=== PATIENT | female | born 1965 | race Caucasian/White ===

== ENCOUNTER 2020-11-28 10:43 | Emergency (ER) | payer OTHER ==
[~2020-11-28] VITALS: Ht 170.2 cm; Wt 54.5 kg
[2020-11-28 10:45] VITALS: BP 142/82
--- NOTE | 2020-11-28 11:07 | PHYS DOC ---
General Adult EDM: Chief Complaint: ANKLE PROBLEM HPI: HPI: 55-year-old female presents with a left lateral ankle pain. The patient was walking down the street last night and she stepped off of the edge of the road and into the ditch. She rolled her foot inward and her weight landed on the lateral side of her ankle. She is able to put most of her weight on it but it is very painful to walk. It is swollen and tender to palpation on the lateral aspect. She denies any other injuries or complaints at this time. Review of Systems: Review of Systems: Constitutional: Denies fever or chills Eyes: Denies change in visual acuity HENT: Denies nasal congestion or sore throat Respiratory: Denies cough or shortness of breath Cardiovascular: Denies chest pain or edema GI: Denies abdominal pain, nausea, vomiting, bloody stools or diarrhea : Denies dysuria Musculoskeletal: Left lateral ankle pain Integument: Denies rash Neurologic: Denies headache, focal weakness or sensory changes Endocrine: Denies polyuria or polydipsia Lymphatic: Denies swollen glands Psychiatric: Denies depression or anxiety Physical Exam: PE: Constitutional: Well developed, well nourished, no acute distress, non-toxic appearance. [] HENT: Normocephalic, atraumatic, bilateral external ears normal, oropharynx mois t, no oral exudates, nose normal. [] Eyes: PERRLA, EOMI, conjunctiva normal, no discharge. [] Neck: Normal range of motion, no tenderness, supple, no stridor. [] Cardiovascular: Heart rate regular rhythm, no murmur [] Lungs & Thorax: Bilateral breath sounds clear to auscultation [] Abdomen: Bowel sounds normal, soft, no tenderness, no masses, no pulsatile masses. [] Skin: Warm, dry, no erythema, no rash. [] Back: No tenderness, no CVA tenderness. [] Extremities: Swelling of the left lateral ankle, tenderness, some ecchymosis. [] Neurologic: Alert and oriented X 3, normal motor function, normal sensory function, no focal deficits noted. [] Psychologic: Affect normal, judgement normal, mood normal. [] EKG: EKG: [] Radiology/Procedures: Radiology/Procedures: [] Impressions: EXAMINATION: Left ankle radiograph. VIEWS: 3 COMPARISON: None INDICATION:55 years, Female, fall, lateral swelling. FINDINGS: Acute minimally displaced oblique lateral malleolar fracture with extension to the articular surface. No dislocation or subluxation. Ankle mortise and talar dome are intact. Mild soft tissue swelling about the lateral malleolus. Small ankle joint effusion. IMPRESSION: Acute minimally displaced lateral malleolar fracture. Electronically signed by: Laurie Baron MD (11/28/2020 11:36 AM) [facility] DICTATED AND SIGNED BY: LAURIE BARON MD DATE: 11/28/20 113 CC: TWIN METCALF DO; PCP,NO ~MTH0 0 Heart Score: C/O Chest Pain: N/A Risk Factors: Risk Factors: DM, Current or recent (<one month) smoker, HTN, HLP, family history of CAD, obesity. Risk Scores: Score 0 - 3: 2.5% MACE over next 6 weeks - Discharge Home Score 4 - 6: 20.3% MACE over next 6 weeks - Admit for Clinical Observation Score 7 - 10: 72.7% MACE over next 6 weeks - Early Invasive Strategies Course & Med Decision Making: Course & Med Decision Making Pertinent Labs and Imaging studies reviewed. (See chart for details) The patient has a distal fibular fracture. She already has a cam boot that she had at home from an injury to her . I have advised that she can continue to use this and follow-up with orthopedics. She is stable for discharge at this time. [] Vanesa Disclaimer: Vanesa Disclaimer: This electronic medical record was generated, in whole or in part, using a voice recognition dictation system. Departure Departure: Impression: Primary Impression: Closed left fibular fracture Qualified Codes: S82.832A - Other fracture of upper and lower end of left fibula, initial encounter for closed fracture Disposition: 01 HOME / SELF CARE / HOMELESS Condition: STABLE Referrals: PCP,NORIS (PCP) Patient Instructions: Fibular Fracture, Ankle, Adult, Treated with or without Immobilization Additional Instructions: You can follow-up with the [facility] orthopedic group for your fracture. To make an appointment call [phone]. TWIN METCALF DO Nov 28, 2020 11:07
--- NOTE | 2020-11-28 11:38 | RAD ---
EXAMINATION: Left ankle radiograph. VIEWS: 3 COMPARISON: None INDICATION:55 years, Female, fall, lateral swelling. FINDINGS: Acute minimally displaced oblique lateral malleolar fracture with extension to the articular surface. No dislocation or subluxation. Ankle mortise and talar dome are intact. Mild soft tissue swelling ab out the lateral malleolus. Small ankle joint effusion. IMPRESSION: Acute minimally displaced lateral malleolar fracture. Electronically signed by: Martin Baron MD (11/28/2020 11:36 AM) [facility]
== END 2020-11-28 11:36 | disposition home or self-care (01) ==
LOC: ER 10:43
DX: S82.832A Other fracture of upper and lower end of left fibula, initial encounter for closed fracture (principal); X50.9XXA Other and unspecified overexertion or strenuous movements or postures, initial encounter; Y93.89 Activity, other specified; Y92.89 Other specified places as the place of occurrence of the external cause; Y99.8 Other external cause status
CPT/HCPCS: 73610; 99283

== ENCOUNTER 2020-12-05 14:08 | Emergency (ER) | payer OTHER ==
[~2020-12-05] VITALS: Ht 170.2 cm; Wt 54.5 kg
--- NOTE | 2020-12-05 14:42 | PHYS DOC ---
Past History Past Surgical History: Other Additional Past Surgical Histo: bilat foot sx Alcohol Use: Occasionally General Adult EDM: Chief Complaint: LOWER EXTREMITY SWELLING HPI: HPI: 55-year-old female presents with left lower leg swelling. The patient fractured her ankle recently and went to her first follow-up appointment with orthopedics today. He did not like the way her left lower leg wound so he ordered an ultrasound. They reportedly found a DVT so they advised the patient to check in the emergency room. Patient denies shortness of breath, chest pain, diaphoresis. She has never had a DVT or pulmonary embolus. No known bleeding or clotting disorders. She has no other complaints this time. Review of Systems: Review of Systems: Constitutional: Denies fever or chills Eyes: Denies change in visual acuity HENT: Denies nasal congestion or sore throat Respiratory: Denies cough or shortness of breath Cardiovascular: Denies chest pain or edema GI: Denies abdominal pain, nausea, vomiting, bloody stools or diarrhea : Denies dysuria Musculoskeletal: left lower leg swelling Integument: Denies rash Neurologic: Denies headache, focal weakness or sensory changes Endocrine: Denies polyuria or polydipsia Lymphatic: Denies swollen glands Psychiatric: Denies depression or anxiety Allergies: Allergies: Allergies Coded Allergies Type Severity Reaction Last Updated Verified No Known Drug Allergies 12/05/20 No Physical Exam: PE: Constitutional: Well developed, well nourished, no acute distress, non-toxic appearance. [] HENT: Normocephalic, atraumatic, bilateral external ears normal, oropharynx moist, no oral exudates, nose normal. [] Eyes: PERRLA, EOMI, conjunctiva normal, no discharge. [] Neck: Normal range of motion, no tenderness, supple, no stridor. [] Cardiovascular:Heart rate regular rhythm, no murmur [] Lungs & Thorax: Bilateral breath sounds clear to auscultation [] Abdomen: Bowel sounds normal, soft, no tenderness, no masses, no pulsatile masses. [] Skin: Warm, dry, no erythema, no rash. [] Back: No tenderness, no CVA tenderness. [] Extremities: Left lower leg around the ankle in a dressing, calf area greater diameter than right, ecchymosis. [] Neurologic: Alert and oriented X 3, normal motor function, normal sensory function, no focal deficits noted. [] Psychologic: Affect normal, judgement normal, mood normal. [] Current Patient Data: Vital Signs: Vital Signs Date Time Temp Pulse Resp B/P (MAP) Pulse Ox O2 Delivery O2 Flow Rate FiO2 12/05/20 14:14 98.9 16 137/83 (101) Room Air EKG: EKG: [] Radiology/Procedures: Radiology/Procedures: [] Impressions: EXAM: Left lower extremity venous Doppler sonogram. HISTORY: Pain and swelling. Ankle fracture. TECHNIQUE: Cagle scale and color Doppler sonographic evaluation of the left lower extremity veins with spectral waveform analysis was performed. FINDINGS: There is occlusive venous thrombosis involving the distal left peroneal veins. There is also occlusive venous thrombosis involving the gastrocnemius vein to the proximal medial calf. There is normal color flow, normal compressibility and there are normal spectral waveforms in the remainder of the lower extremity veins. There is a prominent left inguinal lymph node which is likely physiologic or reactive. This maintains a benign fatty hilum. IMPRESSION: Distal left peroneal occlusive deep venous thrombosis and gastrocnemius venous thrombosis within the proximal medial calf. Findings were communicated to the referring physician office by the manager consumer at the time of the exam. Electronically signed by: Cherie Mcgill MD (12/05/2020 1:54 PM) [id number] DICTATED AND SIGNED BY: CHERIE MCGILL MD DATE: 12/05/20 1352 CC: PCP,NORIS; DENIS SPAULDING DPM ~MTH0 0 Heart Score: C/O Chest Pain: N/A Risk Factors: Risk Factors: DM, Current or recent (<one month) smoker, HTN, HLP, family history of CAD, obesity. Risk Scores: Score 0 - 3: 2.5% MACE over next 6 weeks - Discharge Home Score 4 - 6: 20.3% MACE over next 6 weeks - Admit for Clinical Observation Score 7 - 10: 72.7% MACE over next 6 weeks - Early Invasive Strategies Course & Med Decision Making: Course & Med Decision Making Pertinent Labs and Imaging studies reviewed. (See chart for details) The patient's labs are unremarkable. I reviewed her ultrasound she does have a DVT. I will start her on Eliquis. We will give the first dose in the ED. I have stressed that she must establish with a primary care physician this week. Patient states verbal understanding. She is stable for discharge at this time. [] Vanesa Disclaimer: Dragtony Disclaimer: This electronic medical record was generated, in whole or in part, using a voice recognition dictation system. Departure Departure: Impression: Primary Impression: DVT (deep venous thrombosis) Qualified Codes: I82.452 - Acute embolism and thrombosis of left peroneal vein Disposition: HOME / SELF CARE / HOMELESS Condition: STABLE Referrals: PCP,NO (PCP) Patient Instructions: Deep Vein Thrombosis Scripts Apixaban (ELIQUIS) 5 Mg Tablet 5 MG PO BID for DVT, #60 TAB 2 tablets BID for 7 days, then 1 tablet BID Prov: TWIN METCALF DO 12/05/20 TWIN METCALF DO Dec 05, 2020 14:42
[2020-12-05 15:18] LABS: BASO # 0.1 x10^3/uL (0.0-0.2); BASO % 1 % (0-3); EOS # 0.1 x10^3/uL (0.0-0.7); EOS % 2 % (0-3); HEMATOCRIT 37.9 % (36.0-47.0); HEMOGLOBIN 12.7 g/dL (12.0-15.5); LYMPH # 1.5 x10^3/uL (1.0-4.8); LYMPH % 24 % (24-48); MEAN CORPUSCULAR HEMOGLOBIN 35 pg (25-35); MEAN CORPUSCULAR HGB CONC 34 g/dL (31-37); MEAN CORPUSCULAR VOLUME 104 fL (79-100); MONO # 0.5 x10^3/uL (0.0-1.1); MONO % 9 % (0-9); NEUT % 65 % (31-73); PLATELET COUNT 349 x10^3/uL (140-400); RED BLOOD COUNT 3.66 x10^6/uL (3.50-5.40); RED CELL DISTRIBUTION WIDTH 12.9 % (11.5-14.5); WHITE BLOOD COUNT 6.2 x10^3/uL (4.0-11.0)
[2020-12-05 15:34] LABS: CALCIUM 8.9 mg/dL (8.5-10.1); CREATININE 0.5 mg/dL (0.6-1.0); GFR 129.1; POTASSIUM 3.7 mmol/L (3.5-5.1)
[2020-12-05 15:39] LABS: ALBUMIN 3.3 g/dL (3.4-5.0); ALBUMIN/GLOBULIN RATIO 0.8 (1.0-1.7); TOTAL BILIRUBIN 0.4 mg/dL (0.2-1.0); TOTAL PROTEIN 7.2 g/dL (6.4-8.2)
[2020-12-05] MEDS ORDERED: APIXABAN 5 MG TABLET. PO STA (15:49)
[2020-12-05] MEDS ORDERED: APIX5TAB3 PO (15:55)
[2020-12-05 16:09] VITALS: BP 148/78
== END 2020-12-05 16:12 | disposition home or self-care (01) ==
LOC: ER 14:08
DX: I82.452 Acute embolism and thrombosis of left peroneal vein (principal)
CPT/HCPCS: 36415; 80053; 85025; 85610; 85730; 99283

== ENCOUNTER → 2020-12-05 | Outpatient (CLI) | payer OTHER ==
[2020-11-28 10:45] VITALS: BP 142/82
[~2020-12-05] MED LIST: APIX5TAB3 PO
--- NOTE | 2020-12-05 11:32 | RAD ---
EXAM: Left ankle, 3 views. HISTORY: Pain. COMPARISON: 11/28/2020 FINDINGS: 3 views of the left ankle are obtained. There is a mildly comminuted and displaced fracture of the distal fibular metaphysis. The ankle mortise is intact. There is no osteochondral lesion. The re is a suspected small bone island within the talus. IMPRESSION: No significant interval healing of a mildly displaced distal fibular metaphyseal fracture . Electronically signed by: Cherie Quinn MD (12/05/2020 11:30 AM) [id number]
--- NOTE | 2020-12-05 13:57 | RAD ---
EXAM: Left lower extremity venous Doppler sonogram. HISTORY: Pain and swelling. Ankle fracture. TECHNIQUE: Cagle scale and color Doppler sonographic evaluation of the left lower extremity veins with spectral waveform analysis was performed. FINDINGS: There is occlusive venous thrombosis involving the distal left peroneal veins. There is als o occlusive venous thrombosis involving the gastrocnemius vein to the proximal medial calf. There is normal color flow, normal compressibility and there are normal spectral waveforms in the remainder of the lower extremity veins. There is a prominent left inguinal lymph node which is likely physiologic or reactive. This maintains a benign fatty hilum. IMPRESSION: Distal left peroneal occlusive deep venous thrombosis and gastrocnemius venous thrombosis within the proximal medial calf. Findings were communicated to the referring physician office by the assistant general manager at the time of the ex am. Electronically signed by: Cherie Quinn MD (12/05/2020 1:54 PM) [id number]
== END ==
LOC: RAD 11:10
PROVIDERS: ATTEND Podiatrist
DX: I82.452 Acute embolism and thrombosis of left peroneal vein (principal); I82.462 Acute embolism and thrombosis of left calf muscular vein
CPT/HCPCS: 73610; 93971

== ENCOUNTER 2020-12-18 10:01 | Emergency (ER) | payer OTHER ==
[~2020-12-18] VITALS: Ht 170.2 cm; Wt 54.5 kg
[2020-12-18 10:01] VITALS: BP 150/76
--- NOTE | 2020-12-18 10:07 | PHYS DOC ---
Past History Past Surgical History: Other Additional Past Surgical Histo: bilat foot sx Alcohol Use: Occasionally Adult General HPI HPI Patient is a 55-year-old female presenting for right hand laceration. Reports she was putting her hand in a jar cleaning it when it broke suffering x2 cuts to her hand. She immediately placed pressure on both areas and presented to our ER for evaluation and fear that she might need suture repair. 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 No changes in motor or sensory or neuro function Review of Systems Review of Systems Fourteen body systems of review of systems have been reviewed. See HPI for pertinent positives and negative responses, other juan all other systems are negative, non-pertinent or non-contributory Allergies Allergies Allergies Coded Allergies Type Severity Reaction Last Updated Verified No Known Drug Allergies 12/05/20 No Physical Exam Physical Exam Constitutional: Well developed, well nourished, no acute distress, non-toxic appearance. HENT: Normocephalic, atraumatic, bilateral external ears normal, oropharynx moist, no oral exudates, nose normal. Eyes: PERRLA, EOMI, conjunctiva normal, no discharge. Neck: Normal range of motion, no tenderness, supple, no stridor. Cardiovascular: Heart rate regular per monitor Lungs & Thorax: No respiratory distress or accessory muscle use, bilateral chest rise Abdomen: Abdomen soft, non-tender, bowel sounds present in all quadrants, no guarding or rebound, nonacute abdomen. Skin: Warm, dry, no erythema, no rash. There is laceration present to dorsal portion of right hand inferior to fourth metacarpal, there is also a linear laceration present along dorsal surface of the fifth carpal proximal to PIP Back: No tenderness, no CVA tenderness. Extremities: No tenderness, no cyanosis, no clubbing, ROM intact, no edema. Neurologic: Alert and oriented X 3, medial radial and ulnar nerves of right upper extremity intact normal motor & sensory function, no focal deficits noted. Psychologic: Affect normal, judgement normal, mood normal. Current Patient Data Vital Signs Vital Signs Date Time Temp Pulse Resp B/P (MAP) Pulse Ox O2 Delivery O2 Flow Rate FiO2 12/18/20 10:01 98.2 90 16 150/76 (100) 100 Room Air Vital Signs Date Time Temp Pulse Resp B/P (MAP) Pulse Ox O2 Delivery O2 Flow Rate FiO2 12/18/20 10:01 98.2 90 16 150/76 (100) 100 Room Air EKG EKG [] Radiology/Procedures Radiology/Procedures EXAM: PA, oblique and lateral views of the right hand DATE: 12/18/2020 10:25 AM INDICATION: Reason: right 4th and 5th digit laceration from glass / Spl. Instructions: / History: . COMPARISON: No Prior FINDINGS/ IMPRESSION: Soft tissue swelling overlying the fifth MTP joint. No evidence of acute fracture or dislocation. No definite retained radiopaque foreign body. Electronically signed by: Florencio Garcia MD (12/18/2020 10:39 AM) [facility] Heart Score C/O Chest Pain: No Risk Factors: Risk Factors: DM, Current or recent (<one month) smoker, HTN, HLP, family history of CAD, obesity. Risk Scores: Risk Factors: DM, Current or recent (<one month) smoker, HTN, HLP, family history of CAD, obesity. Course & Med Decision Making Course & Med Decision Making ABCs unremarkable HPI and physical exam obtained. Patient's tetanus out of date, updated today. Radiographs obtained with no bony involvement or retained obvious foreign body Verbal consent obtained to perform suture repair. This was performed and grossly unremarkable for any obvious retained body or significant impairment of patient's motor or sensory or neuro function of left pinky specifically No indication for antibiotics. Appropriate wound care instructions given. St rict return precautions were discussed with good understanding by patient and significant other at bedside. Close PCP follow-up advised with instructions for suture removal in 7 to 10 days Dragon Disclaimer Dragon Disclaimer This electronic medical record was generated, in whole or in part, using a voice recognition dictation system. Laceration Repair Lac Repair Indication: Laceration Procedure: The patient was placed in the appropriate position and anesthesia around the laceration sites were used. A total of 2.5 cc were used around laceration #1 and a total of 1.5 cc was used around laceration #2, 2% lidocaine was administered. The area was then cleansed with wound solution and explored ex tensively with no concerning retained foreign body. Patient did have shiny appearing material sticking out of right lateral pinky consistent with superficial muscle sheath belly but this was not fully lacerated and did not impair the motor function nor sensory or nerve function of fifth digit. The lacerations were closed shut using 5.0 nonabsorbable Prolene. Laceration 1 required a total of 4 simple interrupted sutures while laceration to required a total of 3 simple interrupted sutures. The wound area was then dressed with appropriate covering per protocol. Total repaired wound length: Laceration #1 at base of fourth metacarpal U-shaped in nature and 2.5 cm, laceration to on dorsal surface of right fifth metacarpal 1.5 cm. Other Items: None The patient tolerated the procedure well without any observed nor reported complications. Departure Departure: Impression: Primary Impression: Hand laceration Disposition: HOME / SELF CARE / HOMELESS Condition: STABLE Referrals: PCP,NO (PCP) Patient Instructions: Laceration Care, Adult Additional Instructions: You were seen for a laceration. Keep the area clean and dry. You should return to the ED or your PCP office to get your sutures removed in 7-10 days. Return to the ED immediately if you develop any signs of infection like increased pain, redness, fever, or purulent (pus) drainage. Do not take baths, submerge the wound, or use a hot tub until your stitches are removed and the wound is healed. DALE SALAS DO Dec 18, 2020 10:07
[2020-12-18] MEDS ORDERED: ACETAMINOPHEN 500 MG TABLET PO ONE (10:30)
--- NOTE | 2020-12-18 10:41 | RAD ---
EXAM: PA, oblique and lateral views of the right hand DATE: 12/18/2020 10:25 AM INDICATION: Reason: right 4th and 5th digit laceration from glass / Spl. Instructions: / History: . COMPARISON: No Prior FINDINGS/ IMPRESSION: Soft tissue swelling overlying the fifth MTP joint. No evidence of acute fracture or dislocation. No definite retained radiopaque foreign body. Electronically signed by: Florencio Garcia MD (12/18/2020 10:39 AM) ELIE
[2020-12-18] MEDS ORDERED: DIPH,PERTUSS(ACELL),TET VAC/PF 0.5 ML SYRINGE. VAX IM ONE (11:15)
== END 2020-12-18 11:21 | disposition home or self-care (01) ==
LOC: ER 10:01
DX: S61.411A Laceration without foreign body of right hand, initial encounter (principal); W26.8XXA Contact with other sharp object(s), not elsewhere classified, initial encounter; Y93.89 Activity, other specified; Y92.89 Other specified places as the place of occurrence of the external cause; Y99.8 Other external cause status
CPT/HCPCS: 12002; 73130; 90471; 90715; 99282-25; 99283-25

== ENCOUNTER → 2020-12-26 | Outpatient (CLI) | payer OTHER ==
[2020-12-18 10:01] VITALS: BP 150/76
--- NOTE | 2020-12-26 08:37 | RAD ---
EXAM: Left ankle, 3 views. HISTORY: Fracture follow-up. COMPARISON: 12/05/2020 FINDINGS: 3 views of the left ankle are obtained. There has been no significant interval healing of a mildly displaced distal fibular metaphyseal fracture. The ankle mortise intact. There is no osteocho ndral lesion. IMPRESSION: No significant interval healing of a mildly displaced distal fibular metaphyseal fracture . Electronically signed by: Cherie Quinn MD (12/26/2020 8:35 AM) [id number]
== END ==
LOC: RAD 08:09
PROVIDERS: ATTEND Podiatrist
DX: M25.572 Pain in left ankle and joints of left foot (principal)
CPT/HCPCS: 73610

== ENCOUNTER → 2021-01-20 | Outpatient (CLI) | payer OTHER ==
--- NOTE | 2021-01-20 14:12 | RAD ---
EXAM: Left ankle, 3 views. HISTORY: Fracture. COMPARISON: 12/05/2020 FINDINGS: 3 views of the left ankle are obtained. There has been no significant interval healing of a mildly displaced distal fibular metaphyseal fracture. The degree of displacement is unchanged. Ankle mortise intact. There is no osteochondral lesion. There is suspected disuse osteopenia. IMPRESSION: No significant interval healing of a minimally displaced distal fibular metaphyseal fract ure. Electronically signed by: Cehrie Quinn MD (01/20/2021 2:09 PM) [id number]
== END ==
LOC: RAD 13:34
PROVIDERS: ATTEND Podiatrist
DX: S82.832D Other fracture of upper and lower end of left fibula, subsequent encounter for closed fracture with routine healing (principal); X58.XXXD Exposure to other specified factors, subsequent encounter
CPT/HCPCS: 73610

== ENCOUNTER 2021-01-29 16:15 | Emergency (ER) | payer OTHER ==
[~2021-01-29] VITALS: Ht 170.2 cm; Wt 54.5 kg
[2021-01-29 16:30] VITALS: BP 139/59
--- NOTE | 2021-01-29 17:03 | PHYS DOC ---
Past History Past Surgical History: Other Additional Past Surgical Histo: bilat foot sx Alcohol Use: Occasionally General Adult EDM: Chief Complaint: FOOT INJURY PAIN HPI: HPI: Patient is a 55-year-old female who presents to the emergency department for left foot and ankle pain and swelling. Patient reports that approximately 9 weeks ago she broke her ankle and has followed up with Dr. Mills with Ortho who put her in a walking boot. She states that she is wearing her walking boot but she slipped and fell 1 week ago and is having pain to the posterior aspect of her left ankle and medial aspect of her left ankle. She rates the pain 1 out of 10 with rest but it is worse with bearing weight. She describes the pain as a burning pain. She denies any decreased range of motion or decreased sensation to her extremity. Review of Systems: Review of Systems: Musculoskeletal: See HPI Integument: See HPI Neurologic: See HPI Allergies: Allergies: Allergies Coded Allergies Type Severity Reaction Last Updated Verified No Known Drug Allergies 12/05/20 No Physical Exam: PE: Constitutional: Well developed, well nourished, no acute distress, non-toxic appearance. [] HENT: Normocephalic, atraumatic, bilateral external ears normal, oropharynx moist, no oral exudates, nose normal. [] Eyes: PERRL, EOMI, conjunctiva normal, no discharge. [] Neck: Normal range of motion, no stridor Cardiovascular: Normal peripheral perfusion Lungs & Thorax: Normal work of breathing, no tachypnea Abdomen: Soft and flat Skin: Warm, dry, no erythema, no rash. [] Back: Normal range of motion Extremities: No tenderness, no cyanosis, no clubbing, ROM intact, no edema. [] Left ankle: Pain with palpation to the posterior aspect of left ankle and left m edial ankle, range of motion intact, neuro intact Neurologic: Alert and oriented X 3, normal motor function, normal sensory function, no focal deficits noted. [] Psychologic: Affect normal, judgement normal, mood normal. [] Current Patient Data: Vital Signs: Vital Signs Date Time Temp Pulse Resp B/P (MAP) Pulse Ox O2 Delivery O2 Flow Rate FiO2 01/29/21 16:30 99.1 95 18 139/59 (85) 98 EKG: EKG: [] Radiology/Procedures: Radiology/Procedures: []PROCEDURE: ANKLE LEFT 3V EXAM: 1. LEFT ANKLE 3 VIEWS. 2. LEFT FOOT 3 VIEWS. HISTORY: Pain after injury. COMPARISON: 01/20/2021. FINDINGS: An oblique fracture of the distal fibular metaphysis is unchanged alignment. There is early periosteal reaction. The alignment of the mortise is maintained. A nondisplaced fracture along the posterior talar process is also suspected. No healing is yet detectable. No new fractures seen. Osteopenia is relatively severe for patient age. An ossicle at the tip of the lateral malleolus is consistent with a subacute or chronic avulsion. No fractures are identified in the foot. First metatarsophalangeal osteoarthri tis is mild. Changes of bunionectomy are suspected. A chronic fracture of the fifth proximal phalanx is also suspected. First carpometacarpal osteoarthritis appears moderate. IMPRESSION: 1. Early healing of a distal fibular fracture in unchanged alignment. 2. Suspect a subacute nondisplaced fracture of the posterior process of the talus. Electronically signed by: Ge Adams MD (01/29/2021 5:20 PM) [facility] DICTATED AND SIGNED BY: CEDRICK ADAMS MD DATE: 01/29/211712 CC: TATIANA WORTHY MD; JENN [facility]A [place] ~MTH0 0 Heart Score: C/O Chest Pain: N/A Risk Factors: Risk Factors: DM, Current or recent (<one month) smoker, HTN, HLP, family history of CAD, obesity. Risk Scores: Score 0 - 3: 2.5% MACE over next 6 weeks - Discharge Home Score 4 - 6: 20.3% MACE over next 6 weeks - Admit for Clinical Observation Score 7 - 10: 72.7% MACE over next 6 weeks - Early Invasive Strategies Course & Med Decision Making: Course & Med Decision Making Pertinent Labs and Imaging studies reviewed. (See chart for details) [] Patient resents the emergency department for left posterior ankle and medial ankle pain. Patient reports that she had a previous ankle fracture and was wearing a walking boot. She does have an orthopedic doctor which she follows up with. An x-ray was performed that showed no acute fracture. Patient advised to continue wearing her walking boot and follow-up with her orthopedic doctor. She can take Tylenol and ibuprofen for pain at home. I discussed with patient all findings and diagnostic testing as well as the need to follow-up with PCP for further evaluation and treatment or return to the ER if any new or worsening symptoms. Strict return precautions were also discussed at length. Patient voiced understanding and agreement with the plan. Patient is hemodynamically stable at the time of disposition. Dragon Disclaimer: Dragon Disclaimer: This electronic medical record was generated, in whole or in part, using a voice recognition dictation system. Departure Departure: Impression: Primary Impression: Ankle pain Qualified Codes: M25.572 - Pain in left ankle and joints of left foot; G89.29 - Other chronic pain Disposition: HOME / SELF CARE / HOMELESS Condition: GOOD Referrals: TATIANA WORTHY MD (PCP) Patient Instructions: RICE - Routine Care for Injuries Additional Instructions: You were seen in the emergency department today for left foot pain following a fall. An x-ray was performed that showed no acute fracture. Please continue to wear your walking boot as directed and use your crutches as directed. You can take Tylenol and/or ibuprofen for your pain. You can also apply ice and elevate your extremity to help with swelling. Please contact Dr. Mills tomorrow to set up a follow-up appointment. Return to the emergency department if you develop worsening of your pain, any new injuries, decreased range of motion or decreased sensation to your extremity. JENN MORA [facility] Jan 29, 2021 17:03
--- NOTE | 2021-01-29 17:22 | RAD ---
EXAM: 1. LEFT ANKLE 3 VIEWS. 2. LEFT FOOT 3 VIEWS. HISTORY: Pain after injury. COMPARISON: 01/20/2021. FINDINGS: An oblique fracture of the distal fibular metaphysis is unchanged alignment. There is early periostea l reaction. The alignment of the mortise is maintained. A nondisplaced fracture along the posterior t alar process is also suspected. No healing is yet detectable. No new fractures seen. Osteopenia is re latively severe for patient age. An ossicle at the tip of the lateral malleolus is consistent with a subacute or chronic avulsion. No fractures are identified in the foot. First metatarsophalangeal osteoarthritis is mild. Changes of bunionectomy are suspected. A chronic fracture of the fifth proximal phalanx is also suspected. Firs t carpometacarpal osteoarthritis appears moderate. IMPRESSION: 1. Early healing of a distal fibular fracture in unchanged alignment. 2. Suspect a subacute nondisplaced fracture of the posterior process of the talus. Electronically signed by: Ge Adams MD (01/29/2021 5:20 PM) [facility]
== END 2021-01-29 17:45 | disposition home or self-care (01) ==
LOC: ER 16:15
DX: M25.572 Pain in left ankle and joints of left foot (principal); G89.29 Other chronic pain; M79.672 Pain in left foot; R22.42 Localized swelling, mass and lump, left lower limb
CPT/HCPCS: 73610; 73630; 99283

== ENCOUNTER → 2021-02-07 | Outpatient (CLI) | payer OTHER ==
[2021-01-29 16:30] VITALS: BP 139/59
--- NOTE | 2021-02-07 13:20 | RAD ---
Left lower extremity venous duplex study Clinical History: Lower extremity pain Technique: Using a combination of real time ultrasound imaging and color-flow and pulse Doppler imagi ng techniques, including spectral analysis, graded compression and augmentation, duplex evaluation of the deep venous system of the left lower extremity was performed. Multiple images were obtained. Findings: Redemonstration of thrombosis involving the left peroneal vein. The clot appears echogenic and subacute or chronic chronic appearance. Superficial veins in the left calf also noted to be chron ically thrombosed. Remaining deep veins of the left lower extremity are patent. 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 What appear to be sub acute or chronically thrombosed superficial veins in the left calf also noted. The appearance is saida lar to comparison study. Electronically signed by: Ethan Geronimo MD (02/07/2021 1:18 PM) [id number]
--- NOTE | 2021-02-07 15:20 | RAD ---
Bilateral digital screening 2-D and 3-D (digital breast tomosynthesis) mammogram: Reason for examination: Routine screening. Comparison: None. This is a baseline exam. Interpretation was made with the benefit of CAD. FINDINGS: Breast density: Category B. There are scattered areas of fibroglandular density. No suspicious breast mass, malignant appearing calcifications, or architectural distortion is seen. IMPRESSION: No evidence of malignancy. Assessment: BI-RADS 1. Negative. Recommendation: Routine screening mammograms. The patient will receive a letter with the results in the mail. Patient information will be entered i nto the mammography reminder system with a target recall date for the next mammogram. A reminder leny er will be generated. Electronically signed by: Dawn Raymundo MD (02/07/2021 3:17 PM) [id number]
== END ==
LOC: US 09:46
PROVIDERS: ATTEND Family Medicine
DX: Z12.31 Encounter for screening mammogram for malignant neoplasm of breast (principal); I82.4Z2 Acute embolism and thrombosis of unspecified deep veins of left distal lower extremity
CPT/HCPCS: 77063; 77067; 93971

== ENCOUNTER → 2021-02-17 | Outpatient (CLI) | payer OTHER ==
[2021-01-29 16:30] VITALS: BP 139/59
--- NOTE | 2021-02-17 13:49 | RAD ---
Site ID: [id number] EXAMINATION: XR EXAM OF ANKLE_LEFT 3V. HISTORY: 55 years Female Reason: LEFT ANKLE REINJURY, PAIN / Spl. Instructions: / History: . COMPARISON: January 29, 2021 FINDINGS: Healing distal left fibula fracture with no significant displacement. The fracture line demonstrate t he osseous bridging. The ankle mortise is normal in configuration. There is osteopenia. There is flat tening of the plantar arch suggested. Mild subchondral sclerotic degenerative changes seen. IMPRESSION: Healing distal left fibular fracture without change. Osteopenia. Flattening of the plantar arch. Electronically signed by: Fawad Valdes MD (02/17/2021 1:46 PM) [id number]
== END ==
LOC: RAD 13:20
PROVIDERS: ATTEND Podiatrist
DX: S82.832D Other fracture of upper and lower end of left fibula, subsequent encounter for closed fracture with routine healing (principal); M85.872 Other specified disorders of bone density and structure, left ankle and foot; X58.XXXD Exposure to other specified factors, subsequent encounter
CPT/HCPCS: 73610

== ENCOUNTER → 2021-07-27 | Outpatient (CLI) | payer BC ==
--- NOTE | 2021-07-27 17:02 | RAD ---
US DPLX VENOUS EXTREMITY LOWER LT History: Reason: HX DVT; LT CALF HEAVINESS; PT ON BLOOD THINNERS / Spl. Instructions: / History: Comparison: February 07, 2021 Technique: Multiple longitudinal and transverse high resolution real-time images of the venous system of left lower extremity were obtained with color and Doppler sampling. Findings: The left common femoral, deep femoral, superficial femoral, and popliteal veins. Deep vein thrombosis within the left peroneal vein. Previously seen posterior calf superficial vein t hrombosis is no longer identified. Impression: 1. Deep vein thrombosis within the left peroneal vein, similar compared to prior. Electronically signed by: Thomas Cazares DO (07/27/2021 4:59 PM) [id number]
== END ==
LOC: US 15:52
PROVIDERS: ATTEND Family Medicine
DX: I82.402 Acute embolism and thrombosis of unspecified deep veins of left lower extremity (principal)
CPT/HCPCS: 93971